=== PATIENT | male | born 1995 | race Caucasian/White ===

== ENCOUNTER 2018-09-16 10:54 | Inpatient (IN) | payer OTHER ==
[2018-09-16 13:39] VITALS: BMI 26.6
--- NOTE | 2018-09-16 16:39 | HP ---
COWS - Scale Resting Pulse: 0= [place] 80 or Below Sweatin= Chills/Flushing Restless Observation: 1= Difficult to Sit Still Pupil Size: 1= Pupils >than Normal Bone or Joint Aches: 2= Severe Diffuse Aches Runny Nose/ Eye Tearin= Runny Nose/Eyes GI Upset > 30mins: 1= Stomach Cramp Tremor Observation: 2= Slight Tremor Visible Yawning Observation: 1= 1-2x During Session Anxiety or Irritability: 2=Irritable/Anxious Goose Flesh Skin: 0=Smooth Skin COWS Score: 13 CIWA Score Nausea/Vomitin Muscle Tremors: 2 Anxiety: 2 Agitation: 3 Paroxysmal Sweats: 1-Minimal Palms Moist Orientation: 0-Oriented Tacttile Disturbances: 1-Very Mild Itch/Numbness Auditory Disturbances: 0-None Visual Disturbances: 0-None Headache: 2-Mild CIWA-Ar Total Score: 13 - Admission Criteria OASAS Guidelines: Admission for Medically Managed Detox: Requires at least one of the followin. CIWA greater than 12 2. Seizures within the past 24 hours 3. Delirium tremens within the past 24 hours 4. Hallucinations within the past 24 hours 5. Acute intervention needed for co occurring medical disorder 6. Acute intervention needed for co occurring psychiatric disorder 7. Severe withdrawal that cannot be handled at a lower level of care (continued vomiting, continued diarrhea, abnormal vital signs) requiring intravenous medication and/or fluids 8. Admission ROS [facility] Chief Complaint: i need help to stop using heroin,alcohol,cocaine,xanax, Allergies/Adverse Reactions: Allergies Allergy/AdvReac Type Severity Reaction Status Date / Time No Known Allergies Allergy Verified 09/16/18 13:32 History of Present Illness: this 23 years old male with polysubstance dependence,and alcohol,xanax depndence ,seeking detox,withdrawal symptom seizure 11/22 from xanax withdrawal syncope nicotine dependence 7 cigarette ,would like nicotine patch and gum last detox [facility] 08/24 longest sobriety 5 moths plan for rehab after detox Exam Limitations: No Limitations - Ebola screening Have you traveled outside of the country in the last 21 days: No (N) Have you had contact with anyone from an Ebola affected area: No Do you have a fever: No - Review of Systems Constitutional: Chills, Loss of Appetite, Malaise, Night Sweats, Changes in sleep, Weakness, Unintentional Wgt. Loss EENT: reports: Tearing, Nose Congestion Respiratory: reports: No Symptoms reported GI: reports: Nausea, Poor Appetite, Abdominal cramping : reports: No Symptoms Reported Musculoskeletal: reports: Back Pain, Joint Pain, Muscle Pain Integumentary: reports: Dryness Neuro: reports: Headache, Tremors Endocrine: reports: No Symptoms Reported Hematology: reports: No Symptoms Reported Psychiatric: reports: No Sypmtoms Reported, Judgement Intact, Mood/Affect Appropiate, Orientated x3, Anxious, Depressed, other (insomnia) Other Systems: Reviewed and Negative Patient History - Patient Medical History Hx Anemia: No Hx Asthma: No Hx Chronic Obstructive Pulmonary Disease (COPD): No Hx Cancer: No Hx Cardiac Disorders: No Hx Congestive Heart Failure: No Hx Hypertension: No Hx Hypercholesterolemia: No Hx Pacemaker: No HX Cerebrovascular Accident: No Hx Seizures: Yes (last 2016) Hx Dementia: No Hx Diabetes: No Hx Gastrointestinal Disorders: No Hx Liver Disease: No Hx Genitourinary Disorders: No Hx Sexually Transmitted Disorders: No Hx Renal Disease (ESRD): No Hx Thyroid Disease: No Hx Human Immunodeficiency Virus (HIV): No (last 08/24 negative) Hx Hepatitis C: No Hx Depression: Yes (anxiety,depression,insomnia) Hx Suicide Attempt: No Hx Bipolar Disorder: No Hx Schizophrenia: No Other Medical History: no suicidal,no homicidal - Patient Surgical History Past Surgical History: No - PPD History Previous Implant?: Yes Documented Results: Negative w/o proof Implanted On Prior [facility] Admission?: No PPD to be Administered?: No - Smoking Cessation Smoking history: Current every day smoker Have you smoked in the past 12 months: Yes Aproximately how many cigarettes per day: 7 Cigars Per Day: 0 Hx Chewing Tobacco Use: No Initiated information on smoking cessation: Yes 'Breaking Loose' booklet given: 09/16/18 - Substance & Tx. History Hx Alcohol Use: Yes Hx Substance Use: Yes Substance Use Type: Alcohol, Cocaine, Heroin, Marijuana, Tranquilizers - Substances abused Alcohol Substance route: Oral Frequency: Daily Amount used: 4 Locos=24oz each/day/1pint of vodka Age of first use: 19 Date of last use: 09/16/18 Cocaine Substance route: Injection Frequency: 3-6 times per week Amount used: $150/day Age of first use: 21 Date of last use: 09/15/18 Heroin Substance route: Inhalation Frequency: Daily Amount used: 10 bgs Age of first use: 22 Date of last use: 09/16/18 Alprazolam (Xanax) Substance route: Oral Frequency: Daily Amount used: 4 mgs Age of first use: 19 Date of last use: 09/16/18 Marijuana/Hashish Substance route: Smoking Frequency: 3-6 times per week Amount used: 30$ Age of first use: 19 Date of last use: 09/16/18 Family Disease History - Family Disease History Family History: Denies Admission Physical Exam [facility] - Vital Signs Vital Signs: Vital Signs - 24 hr 09/16/18 13:33 Temperature 98.2 F Pulse Rate 70 Respiratory 16 Rate Blood Pressure 133/75 - Physical General Appearance: Yes: Moderate Distress, Tremorous, Irritable, Sweating, Anxious HEENTM: Yes: Normal ENT Inspection, JAMES, Pharynx Normal Respiratory: Yes: Lungs Clear, Normal Breath Sounds, No Respiratory Distress Neck: Yes: Within Normal Limits, Supple, Trachea in good position Breast: Yes: Within Normal Limits Cardiology: Yes: Within Normal Limits, Regular Rhythm, Regular Rate, S1, S2 Abdominal: Yes: Within Normal Limits, Normal Bowel Sounds, Non Tender, Soft Genitourinary: Yes: Within Normal Limits Back: Yes: Muscle Spasm Musculoskeletal: Yes: full range of Motion, Back pain, Joint Stiffness, Muscle Pain Extremities: Yes: Tremors Neurological: Yes: mixer helper 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 intact, Fully Oriented, Alert, Motor Strength 5/5 Integumentary: Yes: Dry, Track [place] Lymphatic: Yes: Within Normal Limits - Diagnostic (1) Opioid dependence with withdrawal Current Visit: Yes Status: Acute (2) Alcohol dependence with uncomplicated withdrawal Current Visit: Yes Status: Acute (3) Sedative, hypnotic or anxiolytic dependence with withdrawal, uncomplicated Current Visit: Yes Status: Acute (4) Cocaine dependence, uncomplicated Current Visit: Yes Status: Acute (5) Cannabis abuse Current Visit: Yes Status: Acute (6) IVDU (intravenous drug user) Current Visit: Yes Status: Acute (7) Insomnia secondary to depression with anxiety Current Visit: Yes Status: Acute (8) Nicotine dependence Current Visit: Yes Status: Acute Cleared for Admission S - Detox or Rehab [facility] Level of Care: Medically Managed Detox Regimen/Protocol: Methadone/Valium Breathalyzer - Breathalyzer Breathalyzer: 0 Urine Drug Screen - Test Device Lot number: [id number] - Control Is test valid?: Yes - Results Drug screen NEGATIVE: No Urine drug screen results: THC-Marijuana, PERLA-Cocaine, FEN-Fentanyl, MOP-Opiates , MTD-Methadone, BZO-Benzodiazepines Inpatient Rehab Admission - Rehab Decision to Admit Inpatient rehab admission?: No
[2018-09-16] MEDS ORDERED: METHOCARBAMOL 500 MG TABLET PO PRN (16:52)
[2018-09-16] MEDS ORDERED: IBUPROFEN 400 MG TABLET (FP) PO PRN (16:52)
[2018-09-16] MEDS ORDERED: MAG HYDROX/AL HYDROX/SIMETH 30 ML UNIT-DOSE CUP PO PRN (16:52)
[2018-09-16] MEDS ORDERED: BISMUTH SUBSALICYLATE 524 MG/30 ML UD PO PRN (16:52)
[2018-09-16] MEDS ORDERED: ACETAMINOPHEN 325 MG TABLET (FP) PO PRN ×2 (16:52)
[2018-09-16] MEDS ORDERED: MAGNESIUM CITRATE 300 ML BOTTLE PO PRN (16:52)
[2018-09-16] MEDS ORDERED: diazePAM 5 MG TABLET PO PRN (16:52)
[2018-09-16] MEDS ORDERED: METHADONE HCL 10 MG TABLET (FOR DETOX USE ONLY) PO ONE (16:52)
[2018-09-16] MEDS ORDERED: hydrOXYzine PAMOATE 25 MG CAPSULE (FP) PO PRN (16:52)
[2018-09-16] MEDS ORDERED: MENTHOL/PHENOL 1 EACH UD MM PRN (16:52)
[2018-09-16] MEDS ORDERED: cloNIDine HCL 0.1 MG TABLET PO PRN (16:52)
[2018-09-16] MEDS ORDERED: NICOTINE POLACRILEX 2 MG GUM BUC PRN (16:52)
[2018-09-16] MEDS ORDERED: MAGNESIUM HYDROX 2400MG/30ML ORAL SUSPENSION 30 ML CUP PO PRN (16:52)
[2018-09-16] MEDS: NICOTINE 14 MG/24 HOURS TOPICAL PATCH TD SCH (18:00)
[2018-09-16] MEDS: diazePAM 5 MG TABLET PO SCH (23:15)
[2018-09-16] MEDS: THIAMINE HCL 100 MG TABLET (FP) PO SCH (23:15)
[2018-09-16] MEDS: MELATONIN 5 MG TABLETS PO PRN (23:15)
[2018-09-17] MEDS: diazePAM 5 MG TABLET PO SCH ×3 (05:36→22:33)
[2018-09-17] MEDS ORDERED: METHADONE HCL 5 MG TABLET (FOR DETOX USE ONLY) PO ONE (10:00)
[2018-09-17 10:31] LABS: ALBUMIN 3.6 g/dl (3.4-5.0); BILIRUBIN,TOTAL 0.7 mg/dL (0.2-1); BLOOD UREA NITROGEN 8.4 mg/dL (7-18); CALCIUM 9.2 mg/dL (8.5-10.1); CREATININE 0.9 mg/dL (0.55-1.3); POTASSIUM 4.6 mmol/L (3.5-5.1); TOT PROT 6.5 g/dl (6.4-8.2)
[2018-09-17] MEDS: NICOTINE 14 MG/24 HOURS TOPICAL PATCH TD SCH (11:03)
[2018-09-17] MEDS: PRENATAL VITAMINS W/ FOLIC ACID TABLET (FP) PO SCH (11:03)
--- NOTE | 2018-09-17 11:20 | EKG ---
Test Reason : Blood Pressure : / mmHG Vent. Rate : 055 BPM Atrial Rate : 055 BPM P-R Int : 146 ms QRS Dur : 088 ms QT Int : 432 ms P-R-T Axes : 054 070 038 degrees QTc Int : 413 ms SINUS BRADYCARDIA WITH PREMATURE ATRIAL COMPLEXES OTHERWISE NORMAL ECG NO PREVIOUS ECGS AVAILABLE Confirmed by ANAND ROBERTS, KATHRYN ([id number]) on 09/17/2018 11:20:05 AM Referred By: Confirmed By:KATHRYN MICHEL MD
[2018-09-17 12:16] LABS: HEMATOCRIT 39.3 % (35.4-49); HEMOGLOBIN 13.5 GM/dL (11.7-16.9); MCH 30.9 pg (25.7-33.7); MCHC 34.3 g/dl (32.0-35.9); MEAN CELL VOLUME 90.3 fl (80-96); MEAN PLT VOLUME 8.6 fl (7.5-11.1); PLATELET COUNT 155 K/MM3 (134-434); RBC 4.35 M/mm3 (4.00-5.60); RDW 13.6 % (11.9-15.9); WHITE BLOOD COUNT 4.6 K/mm3 (4.0-10.0)
--- NOTE | 2018-09-17 15:20 | PN ---
[facility] CIWA - CIWA Score Nausea/Vomitin-No Nausea/No Vomiting Muscle Tremors: None Anxiety: 4-Mod. Anxious/Guarded Agitation: 3 Paroxysmal Sweats: No Perspiration Orientation: 2-Disoriented Date<2 days Tacttile Disturbances: 0-None Auditory Disturbances: 1-Very Mild Visual Disturbances: 2-Mild Sensitivity Headache: 0-None Present CIWA-Ar Total Score: 12 BHS COWS - Scale Resting Pulse: 0= [place] 80 or Below Sweatin= No chills or Flushing Restless Observation: 1= Difficult to Sit Still Pupil Size: 0= Normal to Room Light Bone or Joint Aches: 2= Severe Diffuse Aches Runny Nose/ Eye Tearin= None GI Upset > 30mins: 1= Stomach Cramp Tremor Observation of Outstretched Hands: 0= None Yawning Observation: 1= 1-2x During Session Anxiety or Irritability: 2=Irritable/Anxious Goose Flesh Skin: 3=Piloerection COWS Score: 10 S Progress Note (SOAP) Subjective: Stomach Cramping, Body Aches, Constipation, Fatigue. Objective: PATIENT A & O X 2 (UNCERTAIN ABOUT CURRENT DAY / DATE). PATIENT OBSERVED AMBULATING ON UNIT UNASSISTED. IN NO ACUTE DISTRESS. 09/17/18 15:22 Vital Signs Temperature 98.6 F 09/17/18 13:56 Pulse Rate 57 L 09/17/18 13:56 Respiratory Rate 16 09/17/18 13:56 Blood Pressure 135/69 09/17/18 13:56 O2 Sat by Pulse Oximetry (%) Laboratory Tests 09/17/18 09/17/18 09/17/18 07:00 07:00 07:00 WBC 4.6 RBC 4.35 Hgb 13.5 Hct 39.3 MCV 90.3 MCH 30.9 MCHC 34.3 RDW 13.6 Plt Count 155 MPV 8.6 Sodium 144 Potassium 4.6 Chloride 108 H Carbon Dioxide 33 H Anion Gap 3 L BUN 8.4 Creatinine 0.9 Est GFR (CKD-EPI)AfAm 140.02 Est GFR (CKD-EPI)NonAf 120.81 Random Glucose 90 Calcium 9.2 Total Bilirubin 0.7 AST 20 ALT 39 Alkaline Phosphatase 90 Total Protein 6.5 Albumin 3.6 RPR Titer Nonreactive LABS NOTED. RESULTS OF DETOX ADMISSION QFT /TB TEST PENDING. 09/17/18 15:22 Assessment: 09/17/18 15:23 WITHDRAWAL SYMPTOMS. Plan: CONTINUE DETOX.
[2018-09-17] MEDS: THIAMINE HCL 100 MG TABLET (FP) PO SCH (22:33)
[2018-09-17] MEDS: MELATONIN 5 MG TABLETS PO PRN (22:34)
[2018-09-18] MEDS: diazePAM 5 MG TABLET PO SCH ×2 (06:33→17:19)
[2018-09-18] MEDS ORDERED: METHADONE HCL 10 MG TABLET (FOR DETOX USE ONLY) PO ONE (10:00)
--- NOTE | 2018-09-18 10:32 | PN ---
S CIWA - CIWA Score Nausea/Vomitin Muscle Tremors: 2 Anxiety: 2 Agitation: 2 Paroxysmal Sweats: 1-Minimal Palms Moist Orientation: 0-Oriented Tacttile Disturbances: 0-None Auditory Disturbances: 0-None Visual Disturbances: 0-None Headache: 1-Very Mild CIWA-Ar Total Score: 10 BHS COWS - Scale Resting Pulse: 0= [place] 80 or Below Sweatin= Chills/Flushing Restless Observation: 1= Difficult to Sit Still Pupil Size: 1= Pupils >than Normal Bone or Joint Aches: 2= Severe Diffuse Aches Runny Nose/ Eye Tearin= Nasal Congestion GI Upset > 30mins: 2= Nausea/Diarrhea Tremor Observation of Outstretched Hands: 1= Tremor [place], Not Seen Yawning Observation: 1= 1-2x During Session Anxiety or Irritability: 2=Irritable/Anxious Goose Flesh Skin: 0=Smooth Skin COWS Score: 12 S Progress Note (SOAP) Subjective: alert,irritable,anxious,interrupted sleep,pain in the body and back Objective: 09/18/18 10:31 Vital Signs Temperature 98.1 F 09/18/18 09:27 Pulse Rate 71 09/18/18 09:27 Respiratory Rate 18 09/18/18 09:27 Blood Pressure 107/67 09/18/18 09:27 O2 Sat by Pulse Oximetry (%) Laboratory Last Values WBC 4.6 K/mm3 (4.0-10.0) 09/17/18 07:00 RBC 4.35 M/mm3 (4.00-5.60) 09/17/18 07:00 Hgb 13.5 GM/dL (11.7-16.9) 09/17/18 07:00 Hct 39.3 % (35.4-49) 09/17/18 07:00 MCV 90.3 fl (80-96) 09/17/18 07:00 MCH 30.9 pg (25.7-33.7) 09/17/18 07:00 MCHC 34.3 g/dl (32.0-35.9) 09/17/18 07:00 RDW 13.6 % (11.9-15.9) 09/17/18 07:00 Plt Count 155 K/MM3 (134-434) 09/17/18 07:00 MPV 8.6 fl (7.5-11.1) 09/17/18 07:00 Sodium 144 mmol/L (136-145) 09/17/18 07:00 Potassium 4.6 mmol/L (3.5-5.1) 09/17/18 07:00 Chloride 108 mmol/L (98-107) H 09/17/18 07:00 Carbon Dioxide 33 mmol/L (21-32) H 09/17/18 07:00 Anion Gap 3 MMOL/L (8-16) L 09/17/18 07:00 BUN 8.4 mg/dL (7-18) 09/17/18 07:00 Creatinine 0.9 mg/dL (0.55-1.3) 09/17/18 07:00 Est GFR (CKD-EPI)AfAm 140.02 09/17/18 07:00 Est GFR (CKD-EPI)NonAf 120.81 09/17/18 07:00 Random Glucose 90 mg/dL (74-106) 09/17/18 07:00 Calcium 9.2 mg/dL (8.5-10.1) 09/17/18 07:00 Total Bilirubin 0.7 mg/dL (0.2-1) 09/17/18 07:00 AST 20 U/L (15-37) 09/17/18 07:00 ALT 39 U/L (13-61) 09/17/18 07:00 Alkaline Phosphatase 90 U/L (45-117) 09/17/18 07:00 Total Protein 6.5 g/dl (6.4-8.2) 09/17/18 07:00 Albumin 3.6 g/dl (3.4-5.0) 09/17/18 07:00 RPR Titer Nonreactive (NONREACTIVE) 09/17/18 07:00 Assessment: 09/18/18 10:32 withdrawal symptom Plan: continue detox,methadone and valium regimen
[2018-09-18] MEDS: NICOTINE 14 MG/24 HOURS TOPICAL PATCH TD SCH (10:45)
[2018-09-18] MEDS: PRENATAL VITAMINS W/ FOLIC ACID TABLET (FP) PO SCH (10:45)
[2018-09-18] MEDS: TOLNAFTATE 1% CREAM 15 GM TUBE TP SCH ×2 (10:48→23:11)
[2018-09-18] MEDS: THIAMINE HCL 100 MG TABLET (FP) PO SCH (23:12)
[2018-09-18 23:59] LABS: PH,URINE 7.5 (5.0-8.0); URINE APPEARANCE CLEAR; URINE BILIRUBIN NEGATIVE (NEGATIVE); URINE COLOR YELLOW; URINE GLUCOSE (UA) NEGATIVE (NEGATIVE); URINE KETONE NEGATIVE (NEGATIVE); URINE LEUK ESTERASE NEGATIVE (NEGATIVE); URINE NITRITE NEGATIVE (NEGATIVE); URINE PROTEIN NEGATIVE (NEGATIVE)
[2018-09-19] MEDS ORDERED: METHADONE HCL 5 MG TABLET (FOR DETOX USE ONLY) PO ONE (06:00)
[2018-09-19] MEDS ORDERED: diazePAM 5 MG TABLET PO ONE (06:00)
--- NOTE | 2018-09-19 09:27 | CONSULT ---
[facility] Psychiatric Consult - Data Date of interview: 09/19/18 Psychiatric History: Patient is leaving the program today. Therefore assessment cannot be done
[2018-09-19 09:31] VITALS: BP 139/86; PULSE 72; TEMP 98.1
--- NOTE | 2018-09-19 15:49 | DS ---
[facility] Detox Discharge Summary Admission Date: 09/16/18 Discharge Date: 09/19/18 - History Present History: Alcohol Dependence, Cannabis Dependence, Cocaine Dependence, Opioid Dependence, Sedative Dependence Additional Comments: PATIENT GOING TO [facility] ([place], [place]) FOR AFTERCARE. PATIENT WAS DISCHARGED FORM DETOX UNIT IN STABLE MEDICAL CONDITION. Pertinent Past History: Nicotine Dependence, History Of Seizure (Due to Xanax Withdrawal), Intravenous Drug User, Depression, Anxiety, Insomnia. - Physical Exam Results Vital Signs: Vital Signs Temperature 98.1 F 09/19/18 09:30 Pulse Rate 72 09/19/18 09:30 Respiratory Rate 18 09/19/18 09:30 Blood Pressure 139/86 09/19/18 09:30 O2 Sat by Pulse Oximetry (%) Pertinent Admission Physical Exam Findings: WITHDRAWAL SYMPTOMS. Laboratory Tests 09/17/18 09/17/18 09/17/18 07:00 07:00 07:00 WBC 4.6 RBC 4.35 Hgb 13.5 Hct 39.3 MCV 90.3 MCH 30.9 MCHC 34.3 RDW 13.6 Plt Count 155 MPV 8.6 Sodium 144 Potassium 4.6 Chloride 108 H Carbon Dioxide 33 H Anion Gap 3 L BUN 8.4 Creatinine 0.9 Est GFR (CKD-EPI)AfAm 140.02 Est GFR (CKD-EPI)NonAf 120.81 Random Glucose 90 Calcium 9.2 Total Bilirubin 0.7 AST 20 ALT 39 Alkaline Phosphatase 90 Total Protein 6.5 Albumin 3.6 Urine Color Urine Appearance Urine pH Ur Specific [place] Urine Protein Urine Glucose (UA) Urine Ketones Urine Blood Urine Nitrite Urine Bilirubin Urine Urobilinogen Ur Leukocyte Esterase RPR Titer Nonreactive 09/18/18 20:30 WBC RBC Hgb Hct MCV MCH MCHC RDW Plt Count MPV Sodium Potassium Chloride Carbon Dioxide Anion Gap BUN Creatinine Est GFR (CKD-EPI)AfAm Est GFR (CKD-EPI)NonAf Random Glucose Calcium Total Bilirubin AST ALT Alkaline Phosphatase Total Protein Albumin Urine Color Yellow Urine Appearance Clear Urine pH 7.5 Ur Specific [place] 1.018 Urine Protein Negative Urine Glucose (UA) Negative Urine Ketones Negative Urine Blood Negative Urine Nitrite Negative Urine Bilirubin Negative Urine Urobilinogen 1.0 Ur Leukocyte Esterase Negative RPR Titer LABS NOTED. - Treatment Hospital Course: Detox Protocol Followed, Detoxed Safely, Responded well, Discharged Condition Good, Rehab Referral Accepted Patient has Accepted a Rehab Referral to: [facility] ([place], [place]). - Medication Discharge Medications: Ambulatory Orders NK [No Known Home Medication] 09/16/18 - Diagnosis (1) Alcohol dependence with uncomplicated withdrawal Status: Acute (2) Cannabis abuse Status: Acute (3) Cocaine dependence, uncomplicated Status: Acute (4) IVDU (intravenous drug user) Status: Acute (5) Insomnia secondary to depression with anxiety Status: Acute (6) Nicotine dependence Status: Acute Qualifiers: Nicotine product type: cigarettes Substance use status: uncomplicated Qualified Code(s): F17.210 - Nicotine dependence, cigarettes, uncomplicated (7) Opioid dependence with withdrawal Status: Acute (8) Sedative, hypnotic or anxiolytic dependence with withdrawal, uncomplicated Status: Acute - AMA Did Patient Leave Against Medical Advice: No
== END 2018-09-19 09:32 | disposition home or self-care (01) | DRG 773 ==
LOC: YASAS 10:54 → Y6N 17:00
PROVIDERS: ADMIT Surgery; ATTEND Surgery
PROC: HZ2ZZZZ Detoxification Services for Substance Abuse Treatment (ICD-10-PCS; principal; 2018-09-16)
DX: F11.23 Opioid dependence with withdrawal (principal); F10.230 Alcohol dependence with withdrawal, uncomplicated; F13.230 Sedative, hypnotic or anxiolytic dependence with withdrawal, uncomplicated; F14.20 Cocaine dependence, uncomplicated; F12.20 Cannabis dependence, uncomplicated; F17.210 Nicotine dependence, cigarettes, uncomplicated; F51.05 Insomnia due to other mental disorder; Z59.0 Homelessness
CPT/HCPCS: 36415; 80053; 81003; 85027; 86480; 86593; 93005; 93010

== ENCOUNTER 2019-01-09 09:28 | Inpatient (IN) | payer OTHER ==
[2019-01-09 10:11] VITALS: BMI 26.2
--- NOTE | 2019-01-09 11:21 | HP ---
COWS - Scale Resting Pulse: 0= [place] 80 or Below Sweatin=Flushed/Facial Moisture Restless Observation: 3= Extraneous Movement Pupil Size: 1= Pupils >than Normal Bone or Joint Aches: 2= Severe Diffuse Aches Runny Nose/ Eye Tearin= Nasal Congestion GI Upset > 30mins: 2= Nausea/Diarrhea Tremor Observation: 1= Tremor [place], Not Seen Yawning Observation: 1= 1-2x During Session Anxiety or Irritability: 2=Irritable/Anxious Goose Flesh Skin: 0=Smooth Skin COWS Score: 15 CIWA Score Nausea/Vomitin Muscle Tremors: 3 Anxiety: 3 Agitation: 3 Paroxysmal Sweats: 3 Orientation: 1-Uncertain about Date Tacttile Disturbances: 0-None Auditory Disturbances: 0-None Visual Disturbances: 0-None Headache: 2-Mild CIWA-Ar Total Score: 18 - Admission Criteria OASAS Guidelines: Admission for Medically Managed Detox: Requires at least one of the followin. CIWA greater than 12 2. Seizures within the past 24 hours 3. Delirium tremens within the past 24 hours 4. Hallucinations within the past 24 hours 5. Acute intervention needed for co occurring medical disorder 6. Acute intervention needed for co occurring psychiatric disorder 7. Severe withdrawal that cannot be handled at a lower level of care (continued vomiting, continued diarrhea, abnormal vital signs) requiring intravenous medication and/or fluids 8. Admitting History and Physical - Admission Chief Complaint: "I got to get off of these drugs. It's a monkey on my back." History of Present Illness: 23 years old male with polysubstance dependence,alcohol, opioid dependence with withdrawals. He is also abusing Xanax daily. He is buying Xanax up to 4 mg daily buying it on the streets. He is using 3 bags of heroin daily, last used yesterday when he overdosed and had to be given narcan! He is drinking 2 40 oz. of beer daily, last drank 2 days ago. seizure 11/22 from xanax withdrawal He is also using cocaine $200 per episode every 2 days, last used yesterday. He smokes about 2 ciggarettes per day now. last detox was here in 09/2018 and he completed it but did not follow up with rehab. He immediately relapsed after that. longest sobriety 5 months plan for rehab after detox PMH: None Psych: Anxiety Disorder Psurg: None [facility] and [facility]. Patient has legal issues and court date on 01/11/19. History Source: Patient Limitations to Obtaining History: No Limitations - Smoking History Smoking history: Current every day smoker Have you smoked in the past 12 months: Yes Aproximately how many cigarettes per day: 7 - Alcohol/Substance Use Hx Alcohol Use: Yes Admission ROS S - HPI Allergies/Adverse Reactions: Allergies Allergy/AdvReac Type Severity Reaction Status Date / Time No Known Allergies Allergy Verified 09/16/18 13:32 - Ebola screening Have you traveled outside of the country in the last 21 days: No Have you had contact with anyone from an Ebola affected area: No Do you have a fever: No Patient History - Patient Medical History Hx Anemia: No Hx Asthma: No Hx Chronic Obstructive Pulmonary Disease (COPD): No Hx Cancer: No Hx Cardiac Disorders: No Hx Congestive Heart Failure: No Hx Hypertension: No Hx Hypercholesterolemia: No Hx Pacemaker: No HX Cerebrovascular Accident: No Hx Seizures: Yes (last 2016) Hx Dementia: No Hx Diabetes: No Hx Gastrointestinal Disorders: No Hx Liver Disease: No Hx Genitourinary Disorders: No Hx Sexually Transmitted Disorders: No Hx Renal Disease (ESRD): No Hx Thyroid Disease: No Hx Human Immunodeficiency Virus (HIV): No (last 08/24 negative) Hx Hepatitis C: No Hx Depression: Yes (anxiety,depression,insomnia) Hx Suicide Attempt: No Hx Bipolar Disorder: No Hx Schizophrenia: No - Patient Surgical History Past Surgical History: No Hx Neurologic Surgery: No Hx Cataract Extraction: No Hx Cardiac Surgery: No Hx Lung Surgery: No Hx Breast Surgery: No Hx Breast Biopsy: No Hx Abdominal Surgery: No Hx Appendectomy: No Hx Cholecystectomy: No Hx Genitourinary Surgery: No Hx Section: No Hx Orthopedic Surgery: No Anesthesia Reaction: No - PPD History Previous Implant?: Yes Documented Results: Negative w/proof Implanted On Prior R Admission?: Yes Date: 09/19/18 (qunatiferon) Results: negative PPD to be Administered?: No - Smoking Cessation Smoking history: Current every day smoker Have you smoked in the past 12 months: Yes Aproximately how many cigarettes per day: 7 Cigars Per Day: 0 Hx Chewing Tobacco Use: No Initiated information on smoking cessation: Yes 'Breaking Loose' booklet given: 01/09/19 - Substances abused Alcohol Substance route: Oral Frequency: Daily Amount used: 80 oz OF '4 LOCOS' BEER Age of first use: 19 Date of last use: 01/08/19 Cocaine Substance route: Injection Frequency: Daily Amount used: $200 Age of first use: 20 Date of last use: 01/08/19 Heroin Substance route: Injection Frequency: Daily Amount used: 3 BAGS Age of first use: 22 Date of last use: 01/08/19 Alprazolam (Xanax) Substance route: Oral Frequency: Daily Amount used: 4 mgs Age of first use: 19 Date of last use: 01/08/19 Marijuana/Hashish Substance route: Smoking Frequency: 1-2 times per week Amount used: $5 Age of first use: 19 Date of last use: 01/08/19 Admission Physical Exam [facility] - Physical General Appearance: Yes: Moderate Distress, Tremorous, Irritable, Sweating, Anxious HEENTM: Yes: EOMI, Hearing grossly Normal, Normal ENT Inspection, Normocephalic , Normal Voice, Pharynx Normal, Tm's normal Respiratory: Yes: Chest Non-Tender, Lungs Clear, Normal Breath Sounds, No Respiratory Distress, No Accessory Muscle Use Neck: Yes: No masses,lesions,Nodules, Trachea in good position Breast: Yes: Within Normal Limits Cardiology: Yes: Regular Rhythm, Regular Rate, S1, S2 Abdominal: Yes: Non Tender, Flat, Increased Bowel Sounds Genitourinary: Yes: Within Normal Limits Back: Yes: Normal Inspection Musculoskeletal: Yes: full range of Motion, Gait Steady, Pelvis Stable Extremities: Yes: Normal Capillary Refill, Normal Inspection, Normal Range of Motion, Non-Tender Neurological: Yes: 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, Fully Oriented, Alert, Motor Strength 5/5, Normal Mood/Affect, Normal Response Integumentary: Yes: Normal Color, Warm Lymphatic: Yes: Within Normal Limits - Diagnostic (1) Alcohol dependence with uncomplicated withdrawal Current Visit: Yes Status: Acute (2) Cannabis abuse Current Visit: Yes Status: Acute (3) Cocaine dependence, uncomplicated Current Visit: Yes Status: Acute (4) IVDU (intravenous drug user) Current Visit: Yes Status: Acute (5) Insomnia secondary to depression with anxiety Current Visit: Yes Status: Acute (6) Nicotine dependence Current Visit: Yes Status: Acute Qualifiers: Nicotine product type: cigarettes Substance use status: uncomplicated Qualified Code(s): F17.210 - Nicotine dependence, cigarettes, uncomplicated (7) Opioid dependence with withdrawal Current Visit: Yes Status: Acute (8) Sedative, hypnotic or anxiolytic dependence with withdrawal, uncomplicated Current Visit: Yes Status: Acute Cleared for Admission S - Detox or Rehab [facility] Level of Care: Medically Managed Detox Regimen/Protocol: Methadone (ativan detox protocol), Not Applicable Screened but not Admitted - Documentation of Visit Screened but not Admitted: No Breathalyzer - Breathalyzer Breathalyzer: 0 Urine Drug Screen - Test Device Lot number: [id number] Expiration date: 09/05/20 - Control Is test valid?: Yes - Results Drug screen NEGATIVE: No Urine drug screen results: THC-Marijuana, PERLA-Cocaine, MOP-Opiates, BZO- Benzodiazepines Inpatient Rehab Admission - Rehab Decision to Admit Inpatient rehab admission?: No
[2019-01-09] MEDS ORDERED: ACETAMINOPHEN 325 MG TABLET (FP) PO PRN ×2 (11:27)
[2019-01-09] MEDS ORDERED: LORazepam 1 MG TABLET PO PRN (11:27)
[2019-01-09] MEDS ORDERED: MENTHOL/PHENOL 1 EACH UD MM PRN (11:27)
[2019-01-09] MEDS ORDERED: MAGNESIUM HYDROX 2400MG/30ML ORAL SUSPENSION 30 ML CUP PO PRN (11:27)
[2019-01-09] MEDS ORDERED: BISMUTH SUBSALICYLATE 262 MG/15 ML BTL PO PRN (11:27)
[2019-01-09] MEDS ORDERED: METHOCARBAMOL 500 MG TABLET PO PRN (11:27)
[2019-01-09] MEDS ORDERED: MAGNESIUM CITRATE 300 ML BOTTLE PO PRN (11:27)
[2019-01-09] MEDS ORDERED: MAG HYDROX/AL HYDROX/SIMETH 30 ML UNIT-DOSE CUP PO PRN (11:27)
[2019-01-09] MEDS ORDERED: cloNIDine HCL 0.1 MG TABLET PO PRN (11:27)
[2019-01-09] MEDS ORDERED: IBUPROFEN 400 MG TABLET (FP) PO PRN (11:27)
[2019-01-09] MEDS ORDERED: METHADONE HCL 10 MG TABLET (FOR DETOX USE ONLY) PO ONE (12:15)
[2019-01-09] MEDS: LORazepam 2 MG TABLET PO SCH ×2 (17:22→22:04)
[2019-01-09 18:26] LABS: HEMATOCRIT 42.9 % (35.4-49); HEMOGLOBIN 14.4 GM/dL (11.7-16.9); MCH 30.3 pg (25.7-33.7); MCHC 33.7 g/dl (32.0-35.9); MEAN CELL VOLUME 89.9 fl (80-96); MEAN PLT VOLUME 8.1 fl (7.5-11.1); PLATELET COUNT 180 K/MM3 (134-434); RBC 4.77 M/mm3 (4.00-5.60); RDW 14.8 % (11.9-15.9); WHITE BLOOD COUNT 6.6 K/mm3 (4.0-10.0)
[2019-01-09 18:33] LABS: ALBUMIN 4.1 g/dl (3.4-5.0); BILIRUBIN,TOTAL 0.7 mg/dL (0.2-1); BLOOD UREA NITROGEN 11.1 mg/dL (7-18); CALCIUM 9.6 mg/dL (8.5-10.1); POTASSIUM 4.3 mmol/L (3.5-5.1)
[2019-01-09] MEDS: THIAMINE HCL 100 MG TABLET (FP) PO SCH (22:04)
[2019-01-09] MEDS: hydrOXYzine PAMOATE 25 MG CAPSULE (FP) PO PRN (22:06)
[2019-01-10] MEDS: LORazepam 2 MG TABLET PO SCH ×4 (06:30→22:21)
[2019-01-10] MEDS ORDERED: METHADONE HCL 5 MG TABLET (FOR DETOX USE ONLY) ONE (09:20)
[2019-01-10] MEDS ORDERED: METHADONE HCL 10 MG TABLET (FOR DETOX USE ONLY) ONE (09:20)
[2019-01-10] MEDS ORDERED: METHADONE (DETOX) 20 MG, METHADONE (DETOX) 5 MG PO ONE (10:00)
[2019-01-10] MEDS: NICOTINE 7 MG/24 HOURS TOPICAL PATCH TD SCH (10:24)
[2019-01-10] MEDS: PRENATAL VITAMINS W/ FOLIC ACID TABLET (FP) PO SCH (10:24)
--- NOTE | 2019-01-10 11:42 | PN ---
[facility] CIWA - CIWA Score Nausea/Vomitin-No Nausea/No Vomiting Muscle Tremors: 3 Anxiety: 3 Agitation: 3 Paroxysmal Sweats: 2 Orientation: 0-Oriented Tacttile Disturbances: 0-None Auditory Disturbances: 0-None Visual Disturbances: 0-None Headache: 0-None Present CIWA-Ar Total Score: 11 S COWS - Scale Resting Pulse: 0= [place] 80 or Below Sweatin= Chills/Flushing Restless Observation: 1= Difficult to Sit Still Pupil Size: 0= Normal to Room Light Bone or Joint Aches: 2= Severe Diffuse Aches Runny Nose/ Eye Tearin= Nasal Congestion GI Upset > 30mins: 0= None Tremor Observation of Outstretched Hands: 1= Tremor [place], Not Seen Yawning Observation: 1= 1-2x During Session Anxiety or Irritability: 2=Irritable/Anxious Goose Flesh Skin: 0=Smooth Skin COWS Score: 9 [facility] Progress Note (SOAP) Subjective: sweats chills body aches restless irritable poor appetite Objective: 01/10/19 11:41 Vital Signs Temperature 97.7 F 01/10/19 06:39 Pulse Rate 59 L 01/10/19 06:39 Respiratory Rate 18 01/10/19 06:39 Blood Pressure 102/60 01/10/19 06:39 O2 Sat by Pulse Oximetry (%) Laboratory Tests 01/09/19 01/09/19 01/09/19 11:30 11:30 11:30 WBC 6.6 RBC 4.77 Hgb 14.4 Hct 42.9 MCV 89.9 MCH 30.3 MCHC 33.7 RDW 14.8 Plt Count 180 MPV 8.1 Sodium 140 Potassium 4.3 Chloride 105 Carbon Dioxide 27 Anion Gap 9 BUN 11.1 Creatinine 1.0 Est GFR (CKD-EPI)AfAm 123.27 Est GFR (CKD-EPI)NonAf 106.36 Random Glucose 88 Calcium 9.6 Total Bilirubin 0.7 AST 89 H ALT 237 H Alkaline Phosphatase 99 Total Protein 8.0 Albumin 4.1 RPR Titer Nonreactive labs noted aaox3 ambulating no acute distress Assessment: 01/10/19 11:41 withdrawals Plan: continue detox increase fluids ensure bid
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
[2019-01-10] MEDS: ATOMOXETINE HCL 40 MG CAPSULE PO SCH (16:08)
[2019-01-10] MEDS ORDERED: ONDANSETRON *ODT* 4 MG TABLET SL PRN (19:15)
--- NOTE | 2019-01-10 19:19 | PN ---
[facility] Progress Note Note: Vital Signs Temperature 98.2 F 01/10/19 17:12 Pulse Rate 69 01/10/19 17:12 Respiratory Rate 18 01/10/19 17:12 Blood Pressure 121/69 01/10/19 17:12 O2 Sat by Pulse Oximetry (%) c/o nausea and vomiting zofran prn ordered continue to monitor
[2019-01-10] MEDS: THIAMINE HCL 100 MG TABLET (FP) PO SCH (22:21)
[2019-01-10] MEDS: MELATONIN 5 MG TABLETS PO PRN (22:22)
[2019-01-11] MEDS: LORazepam 1 MG TABLET PO SCH ×4 (05:55→22:32)
[2019-01-11] MEDS ORDERED: METHADONE HCL 10 MG TABLET (FOR DETOX USE ONLY) PO ONE (10:00)
--- NOTE | 2019-01-11 10:01 | PN ---
[facility] CIWA - CIWA Score Nausea/Vomitin-No Nausea/No Vomiting Muscle Tremors: 3 Anxiety: 2 Agitation: 2 Paroxysmal Sweats: 2 Orientation: 0-Oriented Tacttile Disturbances: 0-None Auditory Disturbances: 0-None Visual Disturbances: 0-None Headache: 0-None Present CIWA-Ar Total Score: 9 [facility] COWS - Scale Resting Pulse: 1= [place] 81-100 Sweatin= No chills or Flushing Restless Observation: 1= Difficult to Sit Still Pupil Size: 0= Normal to Room Light Bone or Joint Aches: 1= Mild Discomfort Runny Nose/ Eye Tearin= None GI Upset > 30mins: 0= None Tremor Observation of Outstretched Hands: 1= Tremor [place], Not Seen Yawning Observation: 1= 1-2x During Session Anxiety or Irritability: 2=Irritable/Anxious Goose Flesh Skin: 0=Smooth Skin COWS Score: 7 S Progress Note (SOAP) Subjective: sweats anxiety interrupted sleep irritable Objective: 01/11/19 10:01 Vital Signs Temperature 96.3 F L 01/11/19 09:50 Pulse Rate 83 01/11/19 09:50 Respiratory Rate 18 01/11/19 09:50 Blood Pressure 125/74 01/11/19 09:50 O2 Sat by Pulse Oximetry (%) Laboratory Tests 01/09/19 01/09/19 01/09/19 11:30 11:30 11:30 WBC 6.6 RBC 4.77 Hgb 14.4 Hct 42.9 MCV 89.9 MCH 30.3 MCHC 33.7 RDW 14.8 Plt Count 180 MPV 8.1 Sodium 140 Potassium 4.3 Chloride 105 Carbon Dioxide 27 Anion Gap 9 BUN 11.1 Creatinine 1.0 Est GFR (CKD-EPI)AfAm 123.27 Est GFR (CKD-EPI)NonAf 106.36 Random Glucose 88 Calcium 9.6 Total Bilirubin 0.7 AST 89 H ALT 237 H Alkaline Phosphatase 99 Total Protein 8.0 Albumin 4.1 RPR Titer Nonreactive labs noted aaox3 ambulating no acute distress Assessment: 01/11/19 10:01 withdrawals Plan: continue detox increase fluids
[2019-01-11] MEDS: PRENATAL VITAMINS W/ FOLIC ACID TABLET (FP) PO SCH (10:24)
[2019-01-11] MEDS: NICOTINE 7 MG/24 HOURS TOPICAL PATCH TD SCH (10:25)
[2019-01-11] MEDS: ATOMOXETINE HCL 40 MG CAPSULE PO SCH (10:25)
[2019-01-11] MEDS: hydrOXYzine PAMOATE 25 MG CAPSULE (FP) PO PRN ×2 (14:03→22:33)
[2019-01-11] MEDS ORDERED: ONDANSETRON *ODT* 4 MG TABLET SL ONE (14:12)
[2019-01-11] MEDS: THIAMINE HCL 100 MG TABLET (FP) PO SCH (22:32)
[2019-01-11] MEDS: TOLNAFTATE 1% CREAM 15 GM TUBE TP SCH (22:32)
[2019-01-12] MEDS ORDERED: LORazepam 0.5 MG TABLET PO PRN
[2019-01-12] MEDS: LORazepam 0.5 MG TABLET PO SCH ×4 (06:40→22:05)
[2019-01-12] MEDS ORDERED: METHADONE HCL 5 MG TABLET (FOR DETOX USE ONLY) ONE (09:21)
[2019-01-12] MEDS ORDERED: METHADONE HCL 10 MG TABLET (FOR DETOX USE ONLY) ONE (09:21)
[2019-01-12] MEDS ORDERED: METHADONE (DETOX) 10 MG, METHADONE (DETOX) 5 MG PO ONE (10:00)
[2019-01-12] MEDS: PRENATAL VITAMINS W/ FOLIC ACID TABLET (FP) PO SCH (10:58)
[2019-01-12] MEDS: ATOMOXETINE HCL 40 MG CAPSULE PO SCH (10:58)
[2019-01-12] MEDS: TOLNAFTATE 1% CREAM 15 GM TUBE TP SCH ×2 (10:59→22:05)
[2019-01-12] MEDS: NICOTINE 7 MG/24 HOURS TOPICAL PATCH TD SCH (11:00)
[2019-01-12] MEDS: hydrOXYzine PAMOATE 25 MG CAPSULE (FP) PO PRN (13:52)
--- NOTE | 2019-01-12 16:49 | PN ---
[facility] CIWA - CIWA Score Nausea/Vomitin-No Nausea/No Vomiting Muscle Tremors: None Anxiety: 4-Mod. Anxious/Guarded Agitation: 2 Paroxysmal Sweats: 2 Orientation: 0-Oriented Tacttile Disturbances: 0-None Auditory Disturbances: 0-None Visual Disturbances: 0-None Headache: 0-None Present CIWA-Ar Total Score: 8 S COWS - Scale Resting Pulse: 0= [place] 80 or Below Sweatin= Chills/Flushing Restless Observation: 1= Difficult to Sit Still Pupil Size: 0= Normal to Room Light Bone or Joint Aches: 1= Mild Discomfort Runny Nose/ Eye Tearin= None GI Upset > 30mins: 0= None Tremor Observation of Outstretched Hands: 0= None Yawning Observation: 1= 1-2x During Session Anxiety or Irritability: 2=Irritable/Anxious Goose Flesh Skin: 0=Smooth Skin COWS Score: 6 S Progress Note (SOAP) Subjective: Anxious, Irritable, Fatigue, Sweating. Objective: PATIENT A & O X 3, OBSERVED AMBULATING ON DETOX UNIT UNASSISTED. IN NO ACUTE DISTRESS. 01/12/19 16:50 Vital Signs Temperature 98.1 F 01/12/19 14:01 Pulse Rate 71 01/12/19 14:01 Respiratory Rate 18 01/12/19 14:01 Blood Pressure 131/64 01/12/19 14:01 O2 Sat by Pulse Oximetry (%) Laboratory Tests 01/09/19 01/09/19 01/09/19 11:30 11:30 11:30 WBC 6.6 RBC 4.77 Hgb 14.4 Hct 42.9 MCV 89.9 MCH 30.3 MCHC 33.7 RDW 14.8 Plt Count 180 MPV 8.1 Sodium 140 Potassium 4.3 Chloride 105 Carbon Dioxide 27 Anion Gap 9 BUN 11.1 Creatinine 1.0 Est GFR (CKD-EPI)AfAm 123.27 Est GFR (CKD-EPI)NonAf 106.36 Random Glucose 88 Calcium 9.6 Total Bilirubin 0.7 AST 89 H ALT 237 H Alkaline Phosphatase 99 Total Protein 8.0 Albumin 4.1 RPR Titer Nonreactive LABS NOTED. Assessment: 01/12/19 16:51 WITHDRAWAL SYMPTOMS. ELEVATED ALT LEVEL. ELEVATED AST LEVEL. Plan: CONTINUE DETOX. INCREASE DAILY ORAL WATER INTAKE. REPEAT AST AND ALT LEVELS ORDERED FOR TOMORROW AM.
[2019-01-12] MEDS: THIAMINE HCL 100 MG TABLET (FP) PO SCH (22:05)
[2019-01-12] MEDS: MELATONIN 5 MG TABLETS PO PRN (22:06)
[2019-01-13] MEDS ORDERED: LORazepam 0.5 MG TABLET PO ONE (05:00)
[2019-01-13] MEDS ORDERED: METHADONE HCL 10 MG TABLET (FOR DETOX USE ONLY) PO ONE (10:00)
[2019-01-13 10:03] LABS: SGOT/AST 385 U/L (15-37); SGPT/ALT 914 U/L (13-61)
[2019-01-13] MEDS: PRENATAL VITAMINS W/ FOLIC ACID TABLET (FP) PO SCH (11:41)
[2019-01-13] MEDS: NICOTINE 7 MG/24 HOURS TOPICAL PATCH TD SCH (11:41)
[2019-01-13] MEDS: ATOMOXETINE HCL 40 MG CAPSULE PO SCH (11:41)
[2019-01-13] MEDS: TOLNAFTATE 1% CREAM 15 GM TUBE TP SCH (11:41)
--- NOTE | 2019-01-13 17:34 | PN ---
[facility] CIWA - CIWA Score Nausea/Vomitin-No Nausea/No Vomiting Muscle Tremors: None Anxiety: 2 Agitation: 2 Paroxysmal Sweats: 2 Orientation: 0-Oriented Tacttile Disturbances: 0-None Auditory Disturbances: 0-None Visual Disturbances: 0-None Headache: 0-None Present CIWA-Ar Total Score: 6 BHS COWS - Scale Resting Pulse: 0= [place] 80 or Below Sweatin= Chills/Flushing Restless Observation: 0= Sits Still Pupil Size: 0= Normal to Room Light Bone or Joint Aches: 1= Mild Discomfort Runny Nose/ Eye Tearin= Runny Nose/Eyes GI Upset > 30mins: 1= Stomach Cramp Tremor Observation of Outstretched Hands: 0= None Yawning Observation: 0= None Anxiety or Irritability: 1=Feels Anxious/Irritable Goose Flesh Skin: 0=Smooth Skin COWS Score: 6 S Progress Note (SOAP) Subjective: Chills, interrupted sleep Objective: 01/13/19 17:30 Last Vital Signs Temp Pulse Resp BP Pulse Ox 98.2 F 55 L 18 115/49 L 01/13/19 15:13 01/13/19 15:13 01/13/19 15:13 01/13/19 15:13 Laboratory Tests 01/09/19 01/09/19 01/09/19 11:30 11:30 11:30 WBC 6.6 RBC 4.77 Hgb 14.4 Hct 42.9 MCV 89.9 MCH 30.3 MCHC 33.7 RDW 14.8 Plt Count 180 MPV 8.1 Sodium 140 Potassium 4.3 Chloride 105 Carbon Dioxide 27 Anion Gap 9 BUN 11.1 Creatinine 1.0 Est GFR (CKD-EPI)AfAm 123.27 Est GFR (CKD-EPI)NonAf 106.36 Random Glucose 88 Calcium 9.6 Total Bilirubin 0.7 AST 89 H ALT 237 H Alkaline Phosphatase 99 Total Protein 8.0 Albumin 4.1 RPR Titer Nonreactive 01/13/19 07:50 WBC RBC Hgb Hct MCV MCH MCHC RDW Plt Count MPV Sodium Potassium Chloride Carbon Dioxide Anion Gap BUN Creatinine Est GFR (CKD-EPI)AfAm Est GFR (CKD-EPI)NonAf Random Glucose Calcium Total Bilirubin AST 385 H ALT 914 H Alkaline Phosphatase Total Protein Albumin RPR Titer Labs reviewed: AST 385>>89; ALT 914>>237 Assessment: 01/13/19 17:31 Withdrawal sxs Noted with Transaminitis Plan: Continue detox Encouraged PO water intake Transaminitis: trended upward significantly, repeat CMP, send hepatitis panel (A , B,C) Transfer patient to ER for further evaluation if no improvement with repeated LFTs in preventing liver failure, avoid tylenol use
--- NOTE | 2019-01-13 17:42 | PN ---
[facility] Progress Note Note: patient would like to be discharged today instead of tomorrow, Vital Signs Temperature 98.2 F 01/13/19 15:13 Pulse Rate 55 L 01/13/19 15:13 Respiratory Rate 18 01/13/19 15:13 Blood Pressure 115/49 L 01/13/19 15:13 O2 Sat by Pulse Oximetry (%) stable for discharge today follow up with after care program as arrangement
--- NOTE | 2019-01-13 17:46 | DS ---
[facility] Detox Discharge Summary Admission Date: 01/09/19 Discharge Date: 01/13/19 - History Present History: Alcohol Dependence, Cannabis Dependence, Cocaine Dependence, Opioid Dependence Additional Comments: patient is stable for discharge today,follow up with after care program as arrangement,explained to patient the elevation of ast,alt,patient is awared and understood,stated he has appointment to see specialist at [facility] tomorrow on Monday01/14/19 Pertinent Past History: nicotine dependence - Physical Exam Results Vital Signs: Vital Signs Temperature 98.2 F 01/13/19 15:13 Pulse Rate 55 L 01/13/19 15:13 Respiratory Rate 18 01/13/19 15:13 Blood Pressure 115/49 L 01/13/19 15:13 O2 Sat by Pulse Oximetry (%) Pertinent Admission Physical Exam Findings: withdrawal sings and symptom Laboratory Last Values WBC 6.6 K/mm3 (4.0-10.0) 01/09/19 11:30 RBC 4.77 M/mm3 (4.00-5.60) 01/09/19 11:30 Hgb 14.4 GM/dL (11.7-16.9) 01/09/19 11:30 Hct 42.9 % (35.4-49) 01/09/19 11:30 MCV 89.9 fl (80-96) 01/09/19 11:30 MCH 30.3 pg (25.7-33.7) 01/09/19 11:30 MCHC 33.7 g/dl (32.0-35.9) 01/09/19 11:30 RDW 14.8 % (11.9-15.9) 01/09/19 11:30 Plt Count 180 K/MM3 (134-434) 01/09/19 11:30 MPV 8.1 fl (7.5-11.1) 01/09/19 11:30 Sodium 140 mmol/L (136-145) 01/09/19 11:30 Potassium 4.3 mmol/L (3.5-5.1) 01/09/19 11:30 Chloride 105 mmol/L (98-107) 01/09/19 11:30 Carbon Dioxide 27 mmol/L (21-32) 01/09/19 11:30 Anion Gap 9 MMOL/L (8-16) 01/09/19 11:30 BUN 11.1 mg/dL (7-18) 01/09/19 11:30 Creatinine 1.0 mg/dL (0.55-1.3) 01/09/19 11:30 Est GFR (CKD-EPI)AfAm 123.27 01/09/19 11:30 Est GFR (CKD-EPI)NonAf 106.36 01/09/19 11:30 Random Glucose 88 mg/dL (74-106) 01/09/19 11:30 Calcium 9.6 mg/dL (8.5-10.1) 01/09/19 11:30 Total Bilirubin 0.7 mg/dL (0.2-1) 01/09/19 11:30 AST 385 U/L (15-37) H 01/13/19 07:50 ALT 914 U/L (13-61) H 01/13/19 07:50 Alkaline Phosphatase 99 U/L (45-117) 01/09/19 11:30 Total Protein 8.0 g/dl (6.4-8.2) 01/09/19 11:30 Albumin 4.1 g/dl (3.4-5.0) 01/09/19 11:30 RPR Titer Nonreactive (NONREACTIVE) 01/09/19 11:30 - Treatment Hospital Course: Detox Protocol Followed, Detoxed Safely, Responded well, Discharged Condition Good Patient has Accepted a Rehab Referral to: declined - Medication Discharge Medications: Ambulatory Orders NK [No Known Home Medication] 09/16/18 - Diagnosis (1) Opioid dependence with withdrawal Current Visit: Yes Status: Acute (2) Alcohol dependence with uncomplicated withdrawal Current Visit: Yes Status: Acute (3) Cannabis abuse Current Visit: Yes Status: Acute (4) Cocaine dependence, uncomplicated Current Visit: Yes Status: Acute (5) IVDU (intravenous drug user) Current Visit: Yes Status: Acute (6) Nicotine dependence Current Visit: Yes Status: Chronic Qualifiers: Nicotine product type: cigarettes Substance use status: uncomplicated Qualified Code(s): F17.210 - Nicotine dependence, cigarettes, uncomplicated (7) Elevated alanine aminotransferase (ALT) level Current Visit: Yes Status: Acute (8) Elevated aspartate aminotransferase level Current Visit: Yes Status: Acute - AMA Did Patient Leave Against Medical Advice: No
[2019-01-13 18:03] VITALS: BP 110/79; PULSE 79; TEMP 98.6
[2019-01-14] MEDS ORDERED: METHADONE HCL 5 MG TABLET (FOR DETOX USE ONLY) PO ONE (06:00)
== END 2019-01-13 17:46 | disposition home or self-care (01) | DRG 773 ==
LOC: YASAS 09:28 → Y6N 11:44
PROVIDERS: ADMIT Allergy & Immunology; ATTEND Allergy & Immunology
PROC: HZ2ZZZZ Detoxification Services for Substance Abuse Treatment (ICD-10-PCS; principal; 2019-01-09)
DX: F11.23 Opioid dependence with withdrawal (principal); F10.230 Alcohol dependence with withdrawal, uncomplicated; F13.230 Sedative, hypnotic or anxiolytic dependence with withdrawal, uncomplicated; F14.20 Cocaine dependence, uncomplicated; F12.10 Cannabis abuse, uncomplicated; F17.210 Nicotine dependence, cigarettes, uncomplicated; F19.280 Other psychoactive substance dependence with psychoactive substance-induced anxiety disorder; F90.9 Attention-deficit hyperactivity disorder, unspecified type; F51.05 Insomnia due to other mental disorder; F41.9 Anxiety disorder, unspecified; R74.0 Nonspecific elevation of levels of transaminase and lactic acid dehydrogenase [LDH]; Z59.0 Homelessness
CPT/HCPCS: 36415; 80053; 84450; 84460; 85027; 86593; Q0162

== ENCOUNTER 2019-02-04 15:57 | Inpatient (IN) | payer OTHER ==
[2019-02-04 16:57] VITALS: BMI 25.8
--- NOTE | 2019-02-04 18:09 | HP ---
COWS - Scale Resting Pulse: 1= [place] 81-100 Sweatin= Chills/Flushing Restless Observation: 0= Sits Still Pupil Size: 0= Normal to Room Light Bone or Joint Aches: 2= Severe Diffuse Aches Runny Nose/ Eye Tearin= None GI Upset > 30mins: 2= Nausea/Diarrhea Tremor Observation: 1= Tremor [place], Not Seen Yawning Observation: 0= None Anxiety or Irritability: 1=Feels Anxious/Irritable Goose Flesh Skin: 0=Smooth Skin COWS Score: 8 CIWA Score Nausea/Vomitin-Int. Nausea w/Dry Heave Muscle Tremors: 1-None Visible, but [place] Anxiety: 4-Mod. Anxious/Guarded Agitation: 0-Normal Activity Paroxysmal Sweats: 1-Minimal Palms Moist Orientation: 0-Oriented Tacttile Disturbances: 3-Moderate Itch/Numb/Burn Auditory Disturbances: 1-Very Mild Visual Disturbances: 0-None Headache: 0-None Present CIWA-Ar Total Score: 14 - Admission Criteria OASAS Guidelines: Admission for Medically Managed Detox: Requires at least one of the followin. CIWA greater than 12 2. Seizures within the past 24 hours 3. Delirium tremens within the past 24 hours 4. Hallucinations within the past 24 hours 5. Acute intervention needed for co occurring medical disorder 6. Acute intervention needed for co occurring psychiatric disorder 7. Severe withdrawal that cannot be handled at a lower level of care (continued vomiting, continued diarrhea, abnormal vital signs) requiring intravenous medication and/or fluids 8. Admitting History and Physical - Admission History of Present Illness: Mr. Patel is a 23 yo man with a pmhx of anxiety and hepatitis C (untreated) who presents today with a desire to enter detox and rehab for alcohol misuse, heroin misuse, and xanax/ klonopin misuse. He reports he was last in detox at the beginning of the month, but relapsed immediately upon leaving. He states he did not enter rehab at that time because he was skeptical but today he feels ready to complete an inpatient rehab program. He also reports that he is currently enrolled in a suboxone program but is not currently taking it. He is interested in switching to methadone. He states he drinks 4 four locos throughout the day. He denies blacking out, however he says he has previously experienced seizures from alcohol withdrawal in the past (last one was in 2017) . He also takes 2-3 bars of xanax daily. He also reports he shoot up 1/2g of cocaine daily and using 10 bags of heroin daily which he injects. He uses a needle exchange but sometimes shares needles and sometimes uses dirty needles. He started using heroin 1 yr ago. He reports he only started injecting drugs ( cocaine and heroin) this past summer because his friends were doing it. The patient is currently undomiciled and normally stays in shelters, and is not currently working. Pt reports he last used heroin a couple hours ago, and last drank alcohol early this morning. He last used cocaine around 6am. Pt states he has been selling his suboxone to buy his heroin. - Smoking History Smoking history: Current every day smoker Have you smoked in the past 12 months: Yes Aproximately how many cigarettes per day: 7 - Alcohol/Substance Use Hx Alcohol Use: Yes Admission [facility] - [facility] Allergies/Adverse Reactions: Allergies Allergy/AdvReac Type Severity Reaction Status Date / Time No Known Allergies Allergy Verified 02/04/19 16:46 - Ebola screening Have you traveled outside of the country in the last 21 days: No Have you had contact with anyone from an Ebola affected area: No Do you have a fever: No Patient History - Patient Medical History Hx Anemia: No Hx Asthma: No Hx Chronic Obstructive Pulmonary Disease (COPD): No Hx Cancer: No Hx Cardiac Disorders: No Hx Congestive Heart Failure: No Hx Hypertension: No Hx Hypercholesterolemia: No Hx Pacemaker: No HX Cerebrovascular Accident: No Hx Seizures: No Hx Dementia: No Hx Diabetes: No Hx Gastrointestinal Disorders: No Hx Liver Disease: No Hx Genitourinary Disorders: No Hx Sexually Transmitted Disorders: No Hx Renal Disease (ESRD): No Hx Thyroid Disease: No Hx Human Immunodeficiency Virus (HIV): No (last 08/24 negative) Hx Hepatitis C: No Hx Depression: No Hx Suicide Attempt: No Hx Bipolar Disorder: No Hx Schizophrenia: No - Patient Surgical History Past Surgical History: No Hx Neurologic Surgery: No Hx Cataract Extraction: No Hx Cardiac Surgery: No Hx Lung Surgery: No Hx Breast Surgery: No Hx Breast Biopsy: No Hx Abdominal Surgery: No Hx Appendectomy: No Hx Cholecystectomy: No Hx Genitourinary Surgery: No Hx Section: No Hx Orthopedic Surgery: No Anesthesia Reaction: No - PPD History Date: 09/17/18 Results: TB QBT neg - Smoking Cessation Smoking history: Current every day smoker Have you smoked in the past 12 months: Yes Aproximately how many cigarettes per day: 7 Cigars Per Day: 0 Hx Chewing Tobacco Use: No Initiated information on smoking cessation: Yes 'Breaking Loose' booklet given: 02/04/19 - Substances abused Alcohol Substance route: Oral Frequency: Daily Amount used: 80 oz OF '4 LOCOS' BEER Age of first use: 19 Date of last use: 02/04/19 Cocaine Substance route: Injection Frequency: 3-6 times per week Amount used: 20 dollars Age of first use: 20 Date of last use: 02/03/19 Heroin Substance route: Injection Frequency: Daily Amount used: 1 bundle Age of first use: 22 Date of last use: 02/04/19 Alprazolam (Xanax) Substance route: Oral Frequency: Daily Amount used: 4 mgs Age of first use: 19 Date of last use: 02/04/19 Marijuana/Hashish Substance route: Smoking Frequency: 1-2 times per week Amount used: $5 Age of first use: 19 Date of last use: 02/01/19 Admission Physical Exam S - Vital Signs Vital Signs: Vital Signs - 24 hr 02/04/19 02/04/19 16:45 17:47 Temperature 98.1 F 98.1 F Respiratory 16 16 Rate Blood Pressure 122/71 122/71 - Physical General Appearance: Yes: Within Normal Limits, Mild Distress, Anxious HEENTM: Yes: EOMI, Hearing grossly Normal, Normal ENT Inspection, Pharynx Normal Respiratory: Yes: Within Normal Limits, Chest Non-Tender, Lungs Clear, Normal Breath Sounds Neck: Yes: Within Normal Limits, No masses,lesions,Nodules, Trachea in good position Cardiology: Yes: Within Normal Limits, Regular Rhythm, S1, S2, Tachycardia Abdominal: Yes: Within Normal Limits, Normal Bowel Sounds, Non Tender, Flat, Soft Back: Yes: Within Normal Limits, Normal Inspection. No: CVA Tenderness Musculoskeletal: Yes: Within Normal Limits, full range of Motion, Gait Steady Extremities: Yes: Within Normal Limits, Normal Capillary Refill, Normal Inspection Neurological: Yes: Within Normal Limits, toppiece chopper II-XII NML intact, Fully Oriented, Motor Strength 5/5 Integumentary: Yes: Within Normal Limits, Normal Color, Dry, Warm Breathalyzer - Breathalyzer Breathalyzer: 0.083 Urine Drug Screen - Test Device Lot number: [id number] Expiration date: 09/05/20 - Control Is test valid?: Yes - Results Drug screen NEGATIVE: No Urine drug screen results: THC-Marijuana, PERLA-Cocaine, MOP-Opiates, BZO- Benzodiazepines Inpatient Rehab Admission - Rehab Decision to Admit Inpatient rehab admission?: No
--- NOTE | 2019-02-04 18:50 | PN ---
Teaching Attending Note Name of Resident: Tiara Holliday ATTENDING PHYSICIAN STATEMENT I saw and evaluated the patient. I reviewed the resident's note and discussed the case with the resident. I agree with the resident's findings and plan as documented. SUBJECTIVE: 23 yo with polysubstance use, left here on 01/14/18, returns today for detox/ rehab. Injecting cocaine/heroin and using illicit xanax and 4 lokos OBJECTIVE: Vital Signs - 24 hr 02/04/19 02/04/19 16:45 17:47 Temperature 98.1 F 98.1 F Respiratory 16 16 Rate Blood Pressure 122/71 122/71 tremulous alert and oriented ASSESSMENT AND PLAN: Admit for alcohol and heroin detox- pt with increased liver enzymes- ativan detox protocol
[2019-02-04] MEDS ORDERED: IBUPROFEN 400 MG TABLET (FP) PO PRN (19:13)
[2019-02-04] MEDS ORDERED: hydrOXYzine PAMOATE 25 MG CAPSULE (FP) PO PRN (19:13)
[2019-02-04] MEDS ORDERED: cloNIDine HCL 0.1 MG TABLET PO PRN (19:13)
[2019-02-04] MEDS ORDERED: MAG HYDROX/AL HYDROX/SIMETH 30 ML UNIT-DOSE CUP PO PRN (19:13)
[2019-02-04] MEDS ORDERED: MENTHOL/PHENOL 1 EACH UD MM PRN (19:13)
[2019-02-04] MEDS ORDERED: MAGNESIUM HYDROX 2400MG/30ML ORAL SUSPENSION 30 ML CUP PO PRN (19:13)
[2019-02-04] MEDS ORDERED: MAGNESIUM CITRATE 300 ML BOTTLE PO PRN (19:13)
[2019-02-04] MEDS ORDERED: LORazepam 1 MG TABLET PO PRN (19:13)
[2019-02-04] MEDS ORDERED: BISMUTH SUBSALICYLATE 524 MG/30 ML UD PO PRN (19:13)
[2019-02-04] MEDS ORDERED: ACETAMINOPHEN 325 MG TABLET (FP) PO PRN ×2 (19:13)
[2019-02-04] MEDS ORDERED: METHADONE HCL 10 MG TABLET (FOR DETOX USE ONLY) PO ONE (19:30)
[2019-02-04] MEDS: LORazepam 2 MG TABLET PO SCH (22:11)
[2019-02-04] MEDS: METHOCARBAMOL 500 MG TABLET PO PRN (22:11)
[2019-02-04] MEDS: THIAMINE HCL 100 MG TABLET (FP) PO SCH (22:13)
[2019-02-05] MEDS: METHOCARBAMOL 500 MG TABLET PO PRN ×2 (06:00→21:46)
[2019-02-05] MEDS: LORazepam 2 MG TABLET PO SCH ×4 (06:00→22:07)
[2019-02-05] MEDS ORDERED: METHADONE HCL 5 MG TABLET (FOR DETOX USE ONLY) ONE (08:38)
[2019-02-05] MEDS ORDERED: METHADONE HCL 10 MG TABLET (FOR DETOX USE ONLY) ONE (08:39)
[2019-02-05] MEDS ORDERED: METHADONE (DETOX) 20 MG, METHADONE (DETOX) 5 MG PO ONE (10:00)
--- NOTE | 2019-02-05 10:17 | PN ---
[facility] CIWA - CIWA Score Nausea/Vomitin-No Nausea/No Vomiting Muscle Tremors: 3 Anxiety: 2 Agitation: 3 Paroxysmal Sweats: 2 Orientation: 0-Oriented Tacttile Disturbances: 0-None Auditory Disturbances: 0-None Visual Disturbances: 0-None Headache: 0-None Present CIWA-Ar Total Score: 10 BHS COWS - Scale Resting Pulse: 0= [place] 80 or Below Sweatin= Chills/Flushing Restless Observation: 1= Difficult to Sit Still Pupil Size: 0= Normal to Room Light Bone or Joint Aches: 2= Severe Diffuse Aches Runny Nose/ Eye Tearin= Nasal Congestion GI Upset > 30mins: 0= None Tremor Observation of Outstretched Hands: 1= Tremor [place], Not Seen Yawning Observation: 1= 1-2x During Session Anxiety or Irritability: 2=Irritable/Anxious Goose Flesh Skin: 0=Smooth Skin COWS Score: 9 [facility] Progress Note (SOAP) Subjective: sweats hot/cold chills body aches irritable restless agitation legs achy Objective: 02/05/19 10:16 Vital Signs Temperature 97.3 F L 02/05/19 09:21 Pulse Rate 62 02/05/19 09:21 Respiratory Rate 18 02/05/19 09:21 Blood Pressure 132/79 02/05/19 09:21 O2 Sat by Pulse Oximetry (%) labs pending aaox3 ambulating no acute distress Assessment: 02/05/19 10:16 withdrawals Plan: continue detox muscle relaxant prn increase fluids
[2019-02-05] MEDS: PRENATAL VITAMINS W/ FOLIC ACID TABLET (FP) PO SCH (10:26)
[2019-02-05 12:10] LABS: HEMATOCRIT 37.8 % (35.4-49); HEMOGLOBIN 12.7 GM/dL (11.7-16.9); MCH 30.5 pg (25.7-33.7); MCHC 33.6 g/dl (32.0-35.9); MEAN CELL VOLUME 90.8 fl (80-96); MEAN PLT VOLUME 7.2 fl (7.5-11.1); PLATELET COUNT 223 K/MM3 (134-434); RBC 4.16 M/mm3 (4.00-5.60); RDW 14.5 % (11.9-15.9); WHITE BLOOD COUNT 4.4 K/mm3 (4.0-10.0)
[2019-02-05 12:25] LABS: ALBUMIN 3.4 g/dl (3.4-5.0); BILIRUBIN,TOTAL 0.4 mg/dL (0.2-1); BLOOD UREA NITROGEN 21.5 mg/dL (7-18); CALCIUM 9.2 mg/dL (8.5-10.1); POTASSIUM 4.8 mmol/L (3.5-5.1); TOT PROT 6.5 g/dl (6.4-8.2)
[2019-02-05] MEDS: MELATONIN 5 MG TABLETS PO PRN (21:46)
[2019-02-05] MEDS: THIAMINE HCL 100 MG TABLET (FP) PO SCH (21:46)
[2019-02-06] MEDS: LORazepam 1 MG TABLET PO SCH ×4 (06:11→22:20)
[2019-02-06] MEDS ORDERED: METHADONE HCL 10 MG TABLET (FOR DETOX USE ONLY) PO ONE (10:00)
[2019-02-06] MEDS: PRENATAL VITAMINS W/ FOLIC ACID TABLET (FP) PO SCH (10:33)
--- NOTE | 2019-02-06 12:30 | PN ---
[facility] CIWA - CIWA Score Nausea/Vomitin-No Nausea/No Vomiting Muscle Tremors: 1-None Visible, but [place] Anxiety: 2 Agitation: 2 Paroxysmal Sweats: 1-Minimal Palms Moist Orientation: 0-Oriented Tacttile Disturbances: 1-Very Mild Itch/Numbness Auditory Disturbances: 0-None Visual Disturbances: 0-None Headache: 0-None Present CIWA-Ar Total Score: 7 S COWS - Scale Resting Pulse: 0= [place] 80 or Below Sweatin= Chills/Flushing Restless Observation: 1= Difficult to Sit Still Pupil Size: 0= Normal to Room Light Bone or Joint Aches: 1= Mild Discomfort Runny Nose/ Eye Tearin= None GI Upset > 30mins: 0= None Tremor Observation of Outstretched Hands: 0= None Yawning Observation: 1= 1-2x During Session Anxiety or Irritability: 2=Irritable/Anxious Goose Flesh Skin: 0=Smooth Skin COWS Score: 6 S Progress Note (SOAP) Subjective: c/o of interrupted sleep, chills, irritable Objective: 02/06/19 12:28 Vital Signs Temperature 97.5 F L 02/06/19 10:10 Pulse Rate 66 02/06/19 10:10 Respiratory Rate 18 02/06/19 10:10 Blood Pressure 114/73 02/06/19 10:10 O2 Sat by Pulse Oximetry (%) Laboratory Last Values WBC 4.4 K/mm3 (4.0-10.0) 02/05/19 07:00 RBC 4.16 M/mm3 (4.00-5.60) 02/05/19 07:00 Hgb 12.7 GM/dL (11.7-16.9) 02/05/19 07:00 Hct 37.8 % (35.4-49) 02/05/19 07:00 MCV 90.8 fl (80-96) 02/05/19 07:00 MCH 30.5 pg (25.7-33.7) 02/05/19 07:00 MCHC 33.6 g/dl (32.0-35.9) 02/05/19 07:00 RDW 14.5 % (11.9-15.9) 02/05/19 07:00 Plt Count 223 K/MM3 (134-434) D 02/05/19 07:00 MPV 7.2 fl (7.5-11.1) L D 02/05/19 07:00 Sodium 140 mmol/L (136-145) 02/05/19 07:00 Potassium 4.8 mmol/L (3.5-5.1) 02/05/19 07:00 Chloride 104 mmol/L (98-107) 02/05/19 07:00 Carbon Dioxide 32 mmol/L (21-32) 02/05/19 07:00 Anion Gap 5 MMOL/L (8-16) L 02/05/19 07:00 BUN 21.5 mg/dL (7-18) H 02/05/19 07:00 Creatinine 1.0 mg/dL (0.55-1.3) 02/05/19 07:00 Est GFR (CKD-EPI)AfAm 123.27 02/05/19 07:00 Est GFR (CKD-EPI)NonAf 106.36 02/05/19 07:00 Random Glucose 101 mg/dL (74-106) 02/05/19 07:00 Calcium 9.2 mg/dL (8.5-10.1) 02/05/19 07:00 Total Bilirubin 0.4 mg/dL (0.2-1) 02/05/19 07:00 AST 23 U/L (15-37) 02/05/19 07:00 ALT 68 U/L (13-61) H 02/05/19 07:00 Alkaline Phosphatase 112 U/L (45-117) 02/05/19 07:00 Total Protein 6.5 g/dl (6.4-8.2) 02/05/19 07:00 Albumin 3.4 g/dl (3.4-5.0) 02/05/19 07:00 RPR Titer Nonreactive (NONREACTIVE) 02/05/19 07:00 repeat CMP Assessment: 02/06/19 12:29 Aox3 no acute distress full ROM ambulating in the unit withdrawal sx Plan: increase PO fluids continue detox continue to monitor
[2019-02-06] MEDS: THIAMINE HCL 100 MG TABLET (FP) PO SCH (22:20)
[2019-02-06] MEDS: MELATONIN 5 MG TABLETS PO PRN (22:21)
[2019-02-07] MEDS ORDERED: LORazepam 0.5 MG TABLET PO PRN
[2019-02-07] MEDS: LORazepam 0.5 MG TABLET PO SCH ×2 (05:40→10:10)
[2019-02-07] MEDS ORDERED: METHADONE HCL 10 MG TABLET (FOR DETOX USE ONLY) ONE (08:39)
[2019-02-07] MEDS ORDERED: METHADONE HCL 5 MG TABLET (FOR DETOX USE ONLY) ONE (08:39)
[2019-02-07] MEDS: PRENATAL VITAMINS W/ FOLIC ACID TABLET (FP) PO SCH (09:47)
[2019-02-07] MEDS ORDERED: METHADONE (DETOX) 10 MG, METHADONE (DETOX) 5 MG PO ONE (10:00)
[2019-02-07 10:31] LABS: ALBUMIN 3.7 g/dl (3.4-5.0); BILIRUBIN,TOTAL 0.3 mg/dL (0.2-1); BLOOD UREA NITROGEN 19.6 mg/dL (7-18); CREATININE 0.8 mg/dL (0.55-1.3); POTASSIUM 4.6 mmol/L (3.5-5.1); TOT PROT 7.2 g/dl (6.4-8.2)
--- NOTE | 2019-02-07 11:13 | PN ---
[facility] CIWA - CIWA Score Nausea/Vomitin-No Nausea/No Vomiting Muscle Tremors: None Anxiety: 3 Agitation: 0-Normal Activity Paroxysmal Sweats: 3 Orientation: 0-Oriented Tacttile Disturbances: 0-None Auditory Disturbances: 0-None Visual Disturbances: 0-None Headache: 1-Very Mild CIWA-Ar Total Score: 7 BHS COWS - Scale Resting Pulse: 0= [place] 80 or Below Sweatin= Chills/Flushing Restless Observation: 1= Difficult to Sit Still Pupil Size: 0= Normal to Room Light Bone or Joint Aches: 2= Severe Diffuse Aches Runny Nose/ Eye Tearin= None GI Upset > 30mins: 0= None Tremor Observation of Outstretched Hands: 0= None Yawning Observation: 1= 1-2x During Session Anxiety or Irritability: 2=Irritable/Anxious Goose Flesh Skin: 0=Smooth Skin COWS Score: 7 S Progress Note (SOAP) Subjective: c/o sweats anxiety, headache, and muscle aches. Objective: 02/07/19 11:14 Vital Signs 02/07/19 02/07/19 02/07/19 03:30 07:30 09:39 Temperature 96.8 F L 98.2 F Pulse Rate 54 L 56 L Respiratory 18 18 18 Rate Blood Pressure 114/50 L 124/67 Laboratory Last Values WBC 4.4 K/mm3 (4.0-10.0) 02/05/19 07:00 RBC 4.16 M/mm3 (4.00-5.60) 02/05/19 07:00 Hgb 12.7 GM/dL (11.7-16.9) 02/05/19 07:00 Hct 37.8 % (35.4-49) 02/05/19 07:00 MCV 90.8 fl (80-96) 02/05/19 07:00 MCH 30.5 pg (25.7-33.7) 02/05/19 07:00 MCHC 33.6 g/dl (32.0-35.9) 02/05/19 07:00 RDW 14.5 % (11.9-15.9) 02/05/19 07:00 Plt Count 223 K/MM3 (134-434) D 02/05/19 07:00 MPV 7.2 fl (7.5-11.1) L D 02/05/19 07:00 Sodium 139 mmol/L (136-145) 02/07/19 08:00 Potassium 4.6 mmol/L (3.5-5.1) 02/07/19 08:00 Chloride 106 mmol/L (98-107) 02/07/19 08:00 Carbon Dioxide 29 mmol/L (21-32) 02/07/19 08:00 Anion Gap 4 MMOL/L (8-16) L 02/07/19 08:00 BUN 19.6 mg/dL (7-18) H 02/07/19 08:00 Creatinine 0.8 mg/dL (0.55-1.3) 02/07/19 08:00 Est GFR (CKD-EPI)AfAm 146.96 02/07/19 08:00 Est GFR (CKD-EPI)NonAf 126.80 02/07/19 08:00 Random Glucose 100 mg/dL (74-106) 02/07/19 08:00 Calcium 9.0 mg/dL (8.5-10.1) 02/07/19 08:00 Total Bilirubin 0.3 mg/dL (0.2-1) 02/07/19 08:00 AST 30 U/L (15-37) 02/07/19 08:00 ALT 62 U/L (13-61) H 02/07/19 08:00 Alkaline Phosphatase 140 U/L (45-117) H 02/07/19 08:00 Total Protein 7.2 g/dl (6.4-8.2) 02/07/19 08:00 Albumin 3.7 g/dl (3.4-5.0) 02/07/19 08:00 RPR Titer Nonreactive (NONREACTIVE) 02/05/19 07:00 Abnormal Lab Results 02/07/19 08:00 Anion Gap 4 L BUN 19.6 H ALT 62 H Alkaline Phosphatase 140 H Labs noted. BUN, ALT levels are trending down. Assessment: 02/07/19 11:14 AOX3, in no acute respiratory distress. Full ROM, ambulating in the unit. Withdrawal symptoms. Repeat BUN/ALT levels are elevated but trending down. 02/07/19 11:16 Plan: continue detox. Increase fluids.
[2019-02-07 12:59] VITALS: BP 114/71; PULSE 68; TEMP 98.3
--- NOTE | 2019-02-07 14:39 | DS ---
[facility] Detox Discharge Summary Admission Date: 02/04/19 Discharge Date: 02/07/19 (Pt left AMA) - History Present History: Alcohol Dependence, Cannabis Dependence, Cocaine Dependence, Opioid Dependence, Sedative Dependence Additional Comments: Pt left AMA. Pt did not complete the detox protocol. Pt states, "i have a family issue to take care of". An attempt to let pt stay and complete the detox protocol failed. Pt is encouraged to follow-up with an outpatient CD program and also to follow-up with his pmd. Pt was adamant about the information given. Pt is alert and oriented x3 and in no acute respiratory distress. Pertinent Past History: h/o alcohol, heroin, benzo, cocaine, and cannabis use disorder. - Physical Exam Results Vital Signs: Vital Signs Temperature 98.3 F 02/07/19 12:59 Pulse Rate 68 02/07/19 12:59 Respiratory Rate 18 02/07/19 12:59 Blood Pressure 114/71 02/07/19 12:59 O2 Sat by Pulse Oximetry (%) Laboratory Last Values WBC 4.4 K/mm3 (4.0-10.0) 02/05/19 07:00 RBC 4.16 M/mm3 (4.00-5.60) 02/05/19 07:00 Hgb 12.7 GM/dL (11.7-16.9) 02/05/19 07:00 Hct 37.8 % (35.4-49) 02/05/19 07:00 MCV 90.8 fl (80-96) 02/05/19 07:00 MCH 30.5 pg (25.7-33.7) 02/05/19 07:00 MCHC 33.6 g/dl (32.0-35.9) 02/05/19 07:00 RDW 14.5 % (11.9-15.9) 02/05/19 07:00 Plt Count 223 K/MM3 (134-434) D 02/05/19 07:00 MPV 7.2 fl (7.5-11.1) L D 02/05/19 07:00 Sodium 139 mmol/L (136-145) 02/07/19 08:00 Potassium 4.6 mmol/L (3.5-5.1) 02/07/19 08:00 Chloride 106 mmol/L (98-107) 02/07/19 08:00 Carbon Dioxide 29 mmol/L (21-32) 02/07/19 08:00 Anion Gap 4 MMOL/L (8-16) L 02/07/19 08:00 BUN 19.6 mg/dL (7-18) H 02/07/19 08:00 Creatinine 0.8 mg/dL (0.55-1.3) 02/07/19 08:00 Est GFR (CKD-EPI)AfAm 146.96 02/07/19 08:00 Est GFR (CKD-EPI)NonAf 126.80 02/07/19 08:00 Random Glucose 100 mg/dL (74-106) 02/07/19 08:00 Calcium 9.0 mg/dL (8.5-10.1) 02/07/19 08:00 Total Bilirubin 0.3 mg/dL (0.2-1) 02/07/19 08:00 AST 30 U/L (15-37) 02/07/19 08:00 ALT 62 U/L (13-61) H 02/07/19 08:00 Alkaline Phosphatase 140 U/L (45-117) H 02/07/19 08:00 Total Protein 7.2 g/dl (6.4-8.2) 02/07/19 08:00 Albumin 3.7 g/dl (3.4-5.0) 02/07/19 08:00 RPR Titer Nonreactive (NONREACTIVE) 02/05/19 07:00 Labs noted. Pertinent Admission Physical Exam Findings: withdrawal symptoms. - Treatment Hospital Course: Detox Protocol Followed - Medication Discharge Medications: Ambulatory Orders NK [No Known Home Medication] 09/16/18 - Diagnosis (1) Alcohol dependence with uncomplicated withdrawal Current Visit: No Status: Acute (2) Cannabis abuse Current Visit: No Status: Acute (3) Cocaine dependence, uncomplicated Current Visit: No Status: Acute (4) IVDU (intravenous drug user) Current Visit: No Status: Acute (5) Opioid dependence with withdrawal Current Visit: No Status: Acute (6) Nicotine dependence Current Visit: No Status: Chronic Qualifiers: Nicotine product type: cigarettes Substance use status: uncomplicated Qualified Code(s): F17.210 - Nicotine dependence, cigarettes, uncomplicated - AMA Did Patient Leave Against Medical Advice: Yes
[2019-02-08] MEDS ORDERED: LORazepam 0.5 MG TABLET PO ONE (05:00)
[2019-02-08] MEDS ORDERED: METHADONE HCL 10 MG TABLET (FOR DETOX USE ONLY) PO ONE (10:00)
[2019-02-09] MEDS ORDERED: METHADONE HCL 5 MG TABLET (FOR DETOX USE ONLY) PO ONE (06:00)
== END 2019-02-07 14:34 | disposition left against medical advice (07) | DRG 770 ==
LOC: YASAS 15:57 → Y6N 19:07
PROVIDERS: ADMIT Allergy & Immunology; ATTEND Allergy & Immunology
PROC: HZ2ZZZZ Detoxification Services for Substance Abuse Treatment (ICD-10-PCS; principal; 2019-02-04)
DX: F11.23 Opioid dependence with withdrawal (principal); F10.230 Alcohol dependence with withdrawal, uncomplicated; F14.20 Cocaine dependence, uncomplicated; F12.20 Cannabis dependence, uncomplicated; F17.210 Nicotine dependence, cigarettes, uncomplicated; R00.0 Tachycardia, unspecified; Z59.0 Homelessness
CPT/HCPCS: 36415; 80053; 85027; 86593